=== PATIENT | male | born 2000 | race African-American/Black ===

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

== ENCOUNTER 2022-01-26 19:02 | Emergency (ER) | payer OTHER ==
[~2022-01-26] VITALS: Ht 175.3 cm; Wt 59.0 kg
--- NOTE | 2022-01-26 19:21 | NUR ---
Patient walked into ER with use of crutches c/o right ankle and left wrist pain from falling while roller skating yesterday
[2022-01-26] MEDS ORDERED: NAPROXEN 500 MG TABLET ONE (19:24)
[2022-01-26] MEDS ORDERED: NAPROXEN 500 MG TABLET PO ONE (19:30)
[2022-01-26] MEDS ORDERED: NAPR-1164 PO (19:51)
[2022-01-26 20:24] VITALS: BP 115/74
== END 2022-01-26 20:10 | disposition home or self-care (01) ==
LOC: ER 19:04
DX: M25.532 Pain in left wrist (principal); M25.571 Pain in right ankle and joints of right foot; Z91.81 History of falling
CPT/HCPCS: 73110; 73610; 73630; A4663

== ENCOUNTER 2022-03-06 19:13 | Emergency (ER) | payer OTHER ==
[~2022-03-06] VITALS: Ht 175.3 cm; Wt 59.0 kg
[~2022-03-06 19:13] MED LIST changes: +NAPR-1164 PO
--- NOTE | 2022-03-06 19:26 | NUR ---
Dr. Yi at bedside for MSE.
--- NOTE | 2022-03-06 19:36 | NUR ---
Xray at bedside.
[2022-03-06] MEDS ORDERED: OXYC-128 PO (20:02)
[2022-03-06] MEDS ORDERED: DOXY100T2 PO (20:16)
[2022-03-06 20:23] VITALS: BP 130/75
--- NOTE | 2022-03-06 20:23 | NUR ---
Patient discharged to home in stable condition. Written and verbal after care instructions given. Patient verbalizes understanding of instructions. Stressed follow up or return to ER for worsening s/s. Patient out of ER with steady gait, no acute signs of distress, VSS, all belongings taken, provided with copies of xray and CD.
== END 2022-03-06 21:22 | disposition home or self-care (01) ==
LOC: ER 19:18
DX: S52.125A Nondisplaced fracture of head of left radius, initial encounter for closed fracture (principal); W01.0XXA Fall on same level from slipping, tripping and stumbling without subsequent striking against object, initial encounter; Y92.89 Other specified places as the place of occurrence of the external cause; J45.909 Unspecified asthma, uncomplicated; A74.9 Chlamydial infection, unspecified
CPT/HCPCS: 73080; A4663

== ENCOUNTER 2022-11-30 12:22 | Emergency (ER) | payer OTHER ==
[~2022-11-30] VITALS: Ht 170.2 cm; Wt 61.2 kg
[~2022-11-30 12:22] MED LIST changes: +DOXY100T2 PO; +OXYC-128 PO
[2022-11-30] MEDS ORDERED: ONDANSETRON 4 MG/2 ML VIAL ONE (12:42)
[2022-11-30] MEDS ORDERED: FAMOTIDINE. 20 MG/2 ML VIAL IV ONE ×2 (12:42→12:45)
[2022-11-30 12:45] LABS: HEMATOCRIT 47.3 % (36.7-47.1); MEAN CORPUSCULAR HEMOGLOBIN 29.6 uug (23.8-33.4); PLATELET COUNT (AUTO) 200 K/uL (152-348)
[2022-11-30] MEDS ORDERED: IV NORMAL SALINE 1000 ML BAG IV ONE (12:45)
[2022-11-30] MEDS ORDERED: ONDANSETRON 4 MG/2 ML VIAL IV ONE (12:45)
[2022-11-30 12:53] LABS: CARBON DIOXIDE 29 mmol/L (21-32); CHLORIDE 102 mmol/L (98-107); CREATININE 0.8 mg/dL (0.6-1.3); GLUCOSE 105 mg/dL (74-106); POTASSIUM 4.2 mmol/L (3.5-5.1); UREA NITROGEN, BLOOD 5 mg/dL (7-18)
[2022-11-30 12:59] LABS: ALANINE AMINOTRANSFERASE 17 U/L (16-63); ALKALINE PHOSPHATASE 70 U/L (50-136); ASPARTATE AMINOTRANSFERASE 14 U/L (15-37); BILIRUBIN,DIRECT 0.1 mg/dL (0.0-0.2); BILIRUBIN,TOTAL 0.5 mg/dL (0.2-1.0); LIPASE 242 U/L (73-393); TOTAL PROTEIN, SERUM 8.7 g/dL (6.4-8.2)
[2022-11-30] MEDS ORDERED: LIDOCAINE VISCUS 2% 15 ML UDC ONE (13:26)
[2022-11-30] MEDS ORDERED: LACTULOSE 20 G/30 ML LIQUID UDC ONE (13:26)
[2022-11-30] MEDS ORDERED: LACTULOSE 20 G/30 ML LIQUID UDC PO ONE (13:30)
[2022-11-30] MEDS ORDERED: LIDOCAINE VISCUS 2% 15 ML UDC MM ONE (13:30)
[2022-11-30] MEDS ORDERED: FAMO-132 PO (13:40)
[2022-11-30 13:58] VITALS: BP 128/79
--- NOTE | 2022-11-30 13:58 | NUR ---
IV removed. Catheter intact and site benign. Pressure and 4x4 gauze applied to site. No bleeding noted.
== END 2022-11-30 14:36 | disposition home or self-care (01) ==
LOC: ER 12:22
DX: K29.70 Gastritis, unspecified, without bleeding (principal); J45.909 Unspecified asthma, uncomplicated
CPT/HCPCS: 99284; 96374; 96361; 96375; 80076; 80048; 83690; 85025; 36415; J3490; J2405; J7040; A4663

== ENCOUNTER 2022-12-30 10:45 | Emergency (ER) | payer OTHER ==
[~2022-12-30] VITALS: Ht 172.7 cm; Wt 63.5 kg
[~2022-12-30 10:45] MED LIST changes: +FAMO-132 PO
--- NOTE | 2022-12-30 11:10 | NUR ---
seen and examined by MD Lagos
--- NOTE | 2022-12-30 12:43 | NUR ---
Bladimir kay in EDM - 12/30/22 at 1252 by EM Patient discharged to home in stable condition. Written and verbal after care instructions given. Patient verbalizes understanding of instructions. Stressed follow up or return to ER for worsening s/s.
[2022-12-30 12:57] VITALS: BP 120/80
== END 2022-12-30 12:57 | disposition home or self-care (01) ==
LOC: ER 10:45
DX: S20.229A Contusion of unspecified back wall of thorax, initial encounter (principal); S70.211A Abrasion, right hip, initial encounter; J45.909 Unspecified asthma, uncomplicated; Z79.899 Other long term (current) drug therapy; Z79.1 Long term (current) use of non-steroidal anti-inflammatories (NSAID); Z79.2 Long term (current) use of antibiotics; V86.55XA Driver of 3- or 4- wheeled all-terrain vehicle (ATV) injured in nontraffic accident, initial encounter; Y93.89 Activity, other specified; Y92.89 Other specified places as the place of occurrence of the external cause; Y99.8 Other external cause status
CPT/HCPCS: 71046; 73030; A4663